=== PATIENT | female | born 2000 | race African-American/Black ===

== ENCOUNTER 2022-06-17 20:43 | Emergency (ER) | payer OTHER | END 2022-06-17 21:38 | disposition home or self-care (01) | LOC: JD.ED 20:43 | DX: L81.4 Other melanin hyperpigmentation (principal); L85.1 Acquired keratosis [keratoderma] palmaris et plantaris | CPT/HCPCS: 99282 ==

== ENCOUNTER 2024-02-07 19:21 | Emergency (ER) | payer OTHER ==
[2024-02-07] MEDS ORDERED: Sodium Chloride 0.9% 10 ML Syringe FLUSH ONE (20:23)
[2024-02-07 20:31] LABS: BASOPHILS PERCENT AUTO 0.4 % (0.0-1.0); EOSINOPHILS ABSOLUTE AUTO 0.1 K/mm3 (0.0-0.4); EOSINOPHILS PERCENT AUTO 0.8 % (0.0-6.0); HEMATOCRIT 37.3 % (37.0-47.0); HEMOGLOBIN 12.9 gm/dl (12.0-16.0); IMMATURE GRAN ABSOLUTE AUTO 0.01 K/mm3 (0.00-0.05); IMMATURE GRAN PERCENT AUTO 0.1 % (0.0-0.4); LYMPHOCYTES ABSOLUTE AUTO 3.1 K/mm3 (1.0-4.8); LYMPHOCYTES PERCENT AUTO 43.8 % (24.0-44.0); MEAN CORPUSCULAR HEMOGLOBIN 26.9 pg (28.0-32.0); MEAN CORPUSCULAR HGB CONC 34.6 g/dl (32.0-36.0); MEAN CORPUSCULAR VOLUME 77.7 fl (83.0-99.0); MEAN PLATELET VOLUME 12.1 fl (9.4-12.3); MONOCYTES ABSOLUTE AUTO 0.6 K/mm3 (0.0-0.8); MONOCYTES PERCENT AUTO 8.8 % (0.0-8.0); NEUTROPHILS ABSOLUTE AUTO 3.3 K/mm3 (1.8-7.7); NEUTROPHILS PERCENT AUTO 46.1 % (41.0-71.0); PLATELET COUNT,PLT 231 K/mm3 (150-400); WHITE BLOOD CELL COUNT,WBC 7.07 K/mm3 (3.9-11.3)
[2024-02-07 20:55] LABS: ANION GAP 9.6 (5-15); BILIRUBIN TOTAL 0.2 mg/dL (0.2-1.0); BUN/CREATININE RATIO 13.8 (14-18); CALCIUM 9.3 mg/dL (8.5-10.1); CREATININE 0.8 mg/dL (0.55-1.02); EST CRCL DRUG DOSING (CG) 87.24 mL/min; POTASSIUM,K 3.6 mEq/L (3.5-5.1); PROTEIN TOTAL,TP 8.1 g/dl (6.4-8.2)
[2024-02-07 21:00] LABS: APPEARANCE,URINE CLOUDY (Clear); BILIRUBIN,URINE NEGATIVE (Negative); COLOR,URINE YELLOW (Yellow); GLUCOSE,URINE NEGATIVE (Negative); KETONES,URINE NEGATIVE (Negative); LEUKOCYTE ESTERASE,URINE NEGATIVE (Negative); NITRITE,URINE POSITIVE (Negative); OCCULT BLOOD,URINE NEGATIVE (Negative); PROTEIN,URINE NEGATIVE (Negative); UROBILINOGEN,URINE 0.2 (0.2-1.0)
[2024-02-07 21:15] LABS: BACTERIA,URINE MANY /hpf (FEW); RBC,URINE 0-5 /hpf (0-5); SQUAMOUS EPITHELIAL CELLS,UR 0-5 /hpf (0-5)
[2024-02-07 21:16] LABS: AMORPHOUS SEDIMENT,URINE MODERATE /hpf (NOT SEEN); MUCUS,URINE FEW /hpf (FEW)
[2024-02-07] MEDS: Iopamidol 612 MG/ML 100 ML Bottle IVPUSH ONE (21:26)
[2024-02-07] MEDS: Cefdinir 300 MG Cap PO ONE (22:17)
[2024-02-07 23:11] LABS: C. TRACHOMATIS BY PCR NOT DETECTED; N. GONORRHOEAE BY PCR NOT DETECTED
== END 2024-02-07 23:27 | disposition home or self-care (01) ==
LOC: JD.ED 19:21
DX: N39.0 Urinary tract infection, site not specified (principal); R10.11 Right upper quadrant pain; Z86.16 Personal history of COVID-19; Z87.891 Personal history of nicotine dependence
CPT/HCPCS: 36415; 74177; 80053; 81001; 83690; 85025; 86592; 87086; 87449; 87491; 87591; 99284; A9270; Q9967; G0433